=== PATIENT | male | born 1970 | race Two or more races ===

== ENCOUNTER 2025-01-04 02:33 | Emergency (ER) | payer MEDICAID, SELFPAY ==
[2025-01-04 04:02] VITALS: BP 159/95; PULSE 73; RESP 16; TEMP 36.7; O2SAT 97
[2025-01-04 04:04] VITALS: BMI 27.8
[2025-01-04] MEDS: ONDANSETRON ODT 4 MG TABRAP PO (04:44)
--- NOTE | 2025-01-04 05:35 | PD.EDRME ---
Rapid Medical Screening Exam RME Arrival date/time: 01/04/25 02:33 54M presents to ED with N/V after he started taking Levofloxacin for PNA. Patient has never had it before. Chief Complaint: Nausea/Vomiting/Diarrhea Time Seen by Provider: 01/04/25 04:12 Vital signs: Vital Signs Temperature 98.0 F 01/04/25 04:02 Pulse Rate 73 01/04/25 04:02 Respiratory Rate 16 01/04/25 04:02 Blood Pressure 159/95 H 01/04/25 04:02 Pulse Oximetry (%) 97 01/04/25 04:02 Oxygen Delivery Method Room Air 01/04/25 04:02
--- NOTE | 2025-01-04 06:30 | PD.EDNV ---
Nausea/Vomit./Diarrhea-RME/HPI General Chief complaint: Nausea/Vomiting/Diarrhea Stated complaint: VOMITING Time Seen by Provider: 01/04/25 04:12 Source: patient Arrival date/time: 01/04/25 02:33 54-year-old male with no known medical history presents to the emergency room with a chief complaint of nausea and vomiting after he began to take levofloxacin for pneumonia. Mode of arrival: ambulatory Limitations: no limitations RME / HPI RME / HPI Narrative: 01/04/25 02:33 54M presents to ED with N/V after he started taking Levofloxacin for PNA. Patient has never had it before. Related Data Previous Rx's ?Medication ?Instructions ?Recorded ondansetron 4 mg disintegrating 4 mg PO Q8H PRN nausea and 01/04/25 tablet vomiting #14 tabs Allergies Allergy/AdvReac Type Severity Reaction Status Date / Time NKA* Allergy Uncoded 01/08/22 20:19 Review of Systems Review of Systems Systems Reviewed: All systems reviewed, normal except as documented Constitutional Constitutional: Reports system reviewed and no additional complaints, except as documented, Denies fatigue, Denies fever(s), Denies headache(s) and Denies weakness Eyes Eyes: Reports system reviewed and no additional complaints, except as documented, Denies blurry vision and Denies change in vision ENT Ears, Nose, Mouth, and Throat: Reports system reviewed and no additional complaints, except as documented, Denies otalgia, Denies headache(s), Denies nasal congestion, Denies throat swelling and Denies vertigo Cardiovascular Cardiovascular: Reports system reviewed and no additional complaints, except as documented, Denies chest pain, Denies dyspnea and Denies dyspnea on exertion Respiratory Respiratory: Reports system reviewed and no additional complaints, except as documented, Denies chest congestion, Denies cough, Denies dyspnea, Denies dyspnea on exertion and Denies wheezing Gastrointestinal Gastrointestinal: Reports system reviewed and no additional complaints, except as documented, Denies abdominal pain, Denies cramping, Reports nausea and Reports vomiting Genitourinary Genitourinary: Reports system reviewed and no additional complaints, except as documented, Denies dysuria and Denies hematuria Musculoskeletal Musculoskeletal: Reports system reviewed and no additional complaints, except as documented and Denies back pain Integumentary/Breasts Skin/Breast: Reports system reviewed and no additional complaints, except as documented and Denies wounds Neurologic Neurologic: Reports system reviewed and no additional complaints, except as documented, Denies confusion, Denies headache(s), Denies lack of coordination, Denies vertigo and Denies weakness Psychiatric Psychiatric: Reports system reviewed and no additional complaints, except as documented, Denies anxiety, Denies confusion, Denies depression, Denies paranoia, Denies suicidal ideation and Denies tactile hallucinations Endocrine Endocrine: Reports system reviewed and no additional complaints, except as documented and Denies fatigue Hematologic/Lymphatic Hematologic/Lymphatic: Reports system reviewed and no additional complaints, except as documented and Denies lymphadenopathy Allergic/Immunologic Allergic/Immunologic: Reports system reviewed and no additional complaints, except as documented, Denies throat swelling, Denies urticaria and Denies wheezing Past Medical History Social History SMOKING STATUS: Never smoker ED Exam General Limitations: Present no limitations General appearance: Present alert and in no apparent distress Head Head exam: Present atraumatic Eye Eye exam: Present normal appearance, PERRL and EOMI ENT ENT exam: Present normal exam, normal oropharynx and mucous membranes moist Neck Neck exam: Present normal inspection, full ROM and trachea midline Chest Chest inspection: Present normal inspection and symmetric chest wall rise Respiratory Respiratory exam: Present normal lung sounds bilaterally Cardiovascular Cardiovascular exam: Present regular rate, normal rhythm and normal heart sounds Abdominal Exam Abdominal exam: Present soft and normal bowel sounds; Absent distention, tenderness, guarding, rebound or rigidity Extremities Exam Extremities exam: Present normal inspection and full ROM Back Exam Back exam: Present normal inspection and full ROM Neurological Exam Neurological exam: Present alert, oriented X3 and CN II-XII intact Psychiatric Psychiatric exam: Present normal affect and normal mood Skin Skin exam: Present warm, dry, intact and normal color Course Quality Measures none Orders Category Date Time Status Ondansetron Odt [Zofran Odt] Med 01/04/25 04:13 Discontinued 4 mg PO X1 ONE Vital Signs Vital signs: Vital Signs Temperature 98.0 F 01/04/25 04:02 Pulse Rate 73 01/04/25 04:02 Respiratory Rate 16 01/04/25 04:02 Blood Pressure 159/95 H 01/04/25 04:02 Pulse Oximetry (%) 97 01/04/25 04:02 Oxygen Delivery Method Room Air 01/04/25 04:02 O2 saturation 97% within normal limits Nausea/Vomiting/Diarrhea MDM Narrative MDM Narrative:: 54-year-old male with no known medical history presents to the emergency room with a chief complaint of nausea and vomiting after he began to take levofloxacin for pneumonia. Patient is hemodynamically stable and in no apparent distress Physical examination shows a soft nontender abdomen. I reevaluated the patient from the [facility] and patient states he is feeling better and is no longer vomiting. Patient denies any tenderness to his abdomen. Patient's antibiotic was switched from levofloxacin to Augmentin. Patient was educated to follow-up with his primary care provider and return to the emergency room for any evidence of worsening signs or symptoms Patient data External records reviewed:: [facility] previous records Clinical information provided by:: patient Social determinants that could affect healthcare access:: none Patient has the following chronic illnesses:: No chronic illness How is presenting disease/condition affected by chronic disease/condition?: no chronic disease Evaluation data The following diagnostics were reviewed and interpreted by me:: lab results and radiology exam(s) Lab and/or radiology exams considered but not ordered:: Labs and radiology exams considered and ordered Interpretation Summary: N/A Medications / Prescriptions Medications / Prescriptions considered but not ordered:: Medication given Medication administrations:: Medication Administration History Discontinued Medications Ondansetron HCl (Ondansetron Odt 4 Mg Tabrap) 4 mg PO X1 ONE; Protocol Stop: 01/04/25 04:14 Last Admin: 01/04/25 04:44 Dose: 4 mg Documented By: FAVIAN Medication given Consultations Consultation(s) initiated? (list below): No Diagnosis Nausea Differential Diagnosis: food poisoning, gastroenteritis and drug-induced nausea and vomiting Most likely diagnosis given after review of the tests above:: Drug-induced nausea vomiting Admission Indicated Admission indicated?: not indicated Admission Request Was there a request for admission?: No Disposition Plan Disposition Plan: Discharge Discharge Attestation Discharge Attestation: The patient and all family members were given an opportunity to ask questions and understood the discharge instructions. Discharge instructions specifically effects, indications for sooner follow up or return to the emergency department, and the expected course of current diagnosis. Patient condition: Stable Discharge Plan Plan Patient Disposition: HOME (Self Care) Discharge Disposition comment: Stable Prescriptions/Referrals Prescriptions/Med Rec: New ondansetron 4 mg tablet,disintegrating 4 mg PO Q8H PRN (Reason: nausea and vomiting) Qty: 14 0RF Referrals: Kade Pires [Primary Care Provider] - In 1 week Problem List Clinical Impression: Gastroenteritis Patient/Caregiver Discharge Instructions Education Materials: ED Gastroenteritis, Noninfectious Additional Instructions: Please follow-up with your primary care provider in the next 24 to 48 hours. Medication was sent to your pharmacy to help you with your vomiting For any evidence of worsening signs or symptoms return to emergency room immediately Print Language: Citizen Of [place] Stand Alone Forms: [employer] Award Info., Patient Portal Info Letter PA/REGISTERED TRAVEL NURSE Supervising Physician PA/REGISTERED TRAVEL NURSE Supervising Physician: Dr. Greenwood
== END 2025-01-04 07:56 | disposition home or self-care (01) ==
PROVIDERS: Emergency Provider Emergency Medicine; PCP Family Medicine
DX: K52.9 Noninfective gastroenteritis and colitis, unspecified (principal)
CPT/HCPCS: 99282; Q0162